=== PATIENT | female | born 1955 | race Caucasian/White ===

== ENCOUNTER → 2024-12-08 12:11 | Outpatient (REF) | payer MEDICARE, OTHER, SELFPAY | LOC: HWRAD 12:11 | PROVIDERS: ATTENDING PHYSICIAN Hospitalist | DX: J01.90 Acute sinusitis, unspecified (principal) | CPT/HCPCS: 71046 ==

== ENCOUNTER → 2025-10-03 12:14 | Outpatient (REF) | payer MEDICARE, OTHER, SELFPAY | LOC: REG 12:14 | PROVIDERS: ATTENDING PHYSICIAN Student in an Organized Health Care Education/Training Program | DX: M54.50 Low back pain, unspecified (principal) | CPT/HCPCS: 72100 ==

== ENCOUNTER → 2025-10-11 07:46 | Outpatient (REF) | payer OTHER, MEDICARE, SELFPAY | LOC: HWRAD 07:46 | PROVIDERS: ATTENDING PHYSICIAN Internal Medicine Hematology & Oncology; FAMILY PHYSICIAN Internal Medicine | DX: C50.411 Malignant neoplasm of upper-outer quadrant of right female breast (principal); C50.812 Malignant neoplasm of overlapping sites of left female breast; M81.0 Age-related osteoporosis without current pathological fracture | CPT/HCPCS: 77080 ==

== ENCOUNTER → 2025-10-13 10:07 | Outpatient (REF) | payer MEDICARE, OTHER, SELFPAY | LOC: RAD 10:07 | PROVIDERS: ATTENDING PHYSICIAN Student in an Organized Health Care Education/Training Program; FAMILY PHYSICIAN Internal Medicine | DX: R14.2 Eructation (principal) | CPT/HCPCS: 74210 ==